=== PATIENT | female | born 1985 | race Caucasian/White ===

== ENCOUNTER → 2016-09-23 | Outpatient (CLI) | payer OTHER ==
[2016-09-23 10:23] VITALS: BP 143/100
== END ==
LOC: MHUC 10:04
PROVIDERS: ATTEND Physician Assistant
DX: J00 Acute nasopharyngitis [common cold] (principal); R05 Cough; I10 Essential (primary) hypertension
CPT/HCPCS: 99213

== ENCOUNTER 2016-10-26 10:17 | Emergency (ER) | payer OTHER ==
[~2016-10-26] VITALS: Ht 165.1 cm; Wt 84.0 kg
--- NOTE | 2016-10-26 10:28 | NUR ---
Pt states she has BP meds to take, but doesn't take them regularly.
[2016-10-26] MEDS ORDERED: PROMETHAZINE 25 MG (PHENERGAN) TAB PO ONE (10:35)
[2016-10-26] MEDS ORDERED: HYDROcodone/APAP 5 MG/325 MG (NORCO) TAB PO ONE (10:35)
[2016-10-26 11:10] VITALS: BP 147/99
== END 2016-10-26 11:12 | disposition home or self-care (01) ==
LOC: ED 10:19
DX: S90.32XA Contusion of left foot, initial encounter (principal); W20.8XXA Other cause of strike by thrown, projected or falling object, initial encounter; Y93.89 Activity, other specified; Y92.009 Unspecified place in unspecified non-institutional (private) residence as the place of occurrence of the external cause
CPT/HCPCS: 73630; 99283; Q0169

== ENCOUNTER → 2016-11-25 | Outpatient (REF) | payer OTHER ==
[~2016-11-25] MED LIST: BENZ-22 PO; HCT25T PO; HYDR-3702 PO; SIME180C48 PO; blood pressure med
[2016-11-25 18:48] LABS: VITAMIN B 12 194 pg/mL (213-816)
== END ==
LOC: LAB 09:39
PROVIDERS: ATTEND Nurse Practitioner Family
DX: Z11.3 Encounter for screening for infections with a predominantly sexual mode of transmission (principal); Z86.39 Personal history of other endocrine, nutritional and metabolic disease
CPT/HCPCS: 82607; 86592